=== PATIENT | female | born 1980 | race Caucasian/White ===

== ENCOUNTER 2018-12-09 08:15 | Emergency (ER) | payer SELFPAY ==
[2018-12-09] MEDS ORDERED: KETOROLAC TROMETHAMINE 60 MG/2 ML SDV IM ONE (09:58)
--- NOTE | 2018-12-09 10:00 | ER Document Report ---
ED General - General Chief Complaint: Back Pain Stated Complaint: BACK PAIN Time Seen by Provider: 12/09/18 08:47 TRAVEL OUTSIDE OF THE [place] IN LAST 30 DAYS: No - HPI Patient complains to provider of: backache Onset: Last week Onset/Duration: Sudden Quality of pain: Achy, Burning Severity: Severe Context: 38 year old female arrives with left sided low back pain that is sharp and radiates into left posterior thigh. Started 3 days ago acutely after picking up a book bag. Pain not relieved with otc meds. No bowel or bladder difficulty. No fever. Back pain occaisionally in the past. Associated symptoms: None Exacerbated by: Movement Relieved by: Denies - Related Data Allergies/Adverse Reactions: egg [Egg] Allergy (Intermediate, Verified 12/09/18 08:16) rash banana [Banana] Adverse Reaction (Severe, Verified 12/09/18 08:16) Anaphylaxis vitamin milk Allergy (Severe, Uncoded 12/09/18 08:16) rash mushrooms Allergy (Intermediate, Uncoded 12/09/18 08:16) halluncinations Past Medical History - Social History Smoking Status: Unknown if Ever Smoked Frequency of alcohol use: None Drug Abuse: None Family History: Reviewed & Not Pertinent Patient has suicidal ideation: No Patient has homicidal ideation: No - Past Medical History Cardiac Medical History: Denies: Hx Coronary Artery Disease, Hx Heart Attack, Hx Hypertension Pulmonary Medical History: Reports: Hx Asthma - no meds x 1 yr, Hx Bronchitis - hx of Denies: Hx COPD, Hx Pneumonia Neurological Medical History: Denies: Hx Cerebrovascular Accident, Hx Seizures Renal/ Medical History: Denies: Hx Peritoneal Dialysis Musculoskeletal Medical History: Denies Hx Arthritis, Reports Hx Fibromyalgia Psychiatric Medical History: Reports: Hx Attention Deficit Hyperactivity Disorder Past Surgical History: Reports: Hx Section - x2, Hx Cholecystectomy, Hx Tonsillectomy - adnoids - Immunizations Hx Diphtheria, Pertussis, Tetanus Vaccination: Yes Hx Pneumococcal Vaccination: 01/08/14 Review of Systems - Review of Systems Constitutional: No symptoms reported EENT: No symptoms reported Cardiovascular: No symptoms reported Respiratory: No symptoms reported Gastrointestinal: No symptoms reported Genitourinary: No symptoms reported Female Genitourinary: No symptoms reported Musculoskeletal: See HPI, Back pain Skin: No symptoms reported Hematologic/Lymphatic: No symptoms reported Neurological/Psychological: No symptoms reported Physical Exam - Vital signs Interpretation: Normal - General General appearance: Appears well, Alert - HEENT Head: Normocephalic, Atraumatic Eyes: Normal Pupils: PERRL - Respiratory Respiratory status: No respiratory distress Chest status: Nontender Breath sounds: Normal Chest palpation: Normal - Cardiovascular Rhythm: Regular Heart sounds: Normal auscultation Murmur: No - Abdominal Inspection: Normal Distension: No distension Bowel sounds: Normal Tenderness: Nontender Organomegaly: No organomegaly - Back Back: Tender. No: Vertebra tenderness - Extremities General upper extremity: Normal inspection, Nontender, Normal color, Normal ROM, Normal temperature General lower extremity: Normal inspection, Nontender, Normal color, Normal ROM, Normal temperature, Normal weight bearing. No: Herberth's sign - Neurological Neuro grossly intact: Yes Cognition: Normal Orientation: AAOx4 [place] Coma Scale Eye Opening: Spontaneous [place] Coma Scale Verbal: Oriented [place] Coma Scale Motor: Obeys Commands Carl[place] Coma Scale Total: 15 Speech: Normal Motor strength normal: LUE, RUE, LLE, RLE Sensory: Normal - Psychological Associated symptoms: Normal affect, Normal mood - Skin Skin Temperature: Warm Skin Moisture: Dry Skin Color: Normal Discharge - Discharge Clinical Impression: Sciatic leg pain Backache Qualifiers: Back pain location: low back pain Chronicity: acute Back pain laterality: left Sciatica presence: with sciatica Sciatica laterality: sciatica of left side Qualified Code(s): M54.42 - Lumbago with sciatica, left side Condition: Good Disposition: HOME, SELF-CARE Instructions: Low Back Pain ([facility]), Muscle Strain ([facility]), Oral Narcotic Medication ([facility]) Additional Instructions: Rest, ice to back. See your doctor in follow up. Please return here for any problems or any concerns. Take your medicine as directed. Prescriptions: Hydrocodone Bit/Acetaminophen [Hydrocodon-Acetaminophen 5-325] 1 each PO TID #12 tablet Ibuprofen [Motrin 600 Mg Tablet] 600 mg PO TID #15 tablet Diazepam [Valium] 5 mg PO TID #12 tablet
[2018-12-09 10:12] VITALS: BP 123/68
== END 2018-12-09 10:12 | disposition home or self-care (01) ==
LOC: ER 08:15
DX: M54.42 Lumbago with sciatica, left side (principal); Z90.49 Acquired absence of other specified parts of digestive tract; Z91.012 Allergy to eggs; Z91.018 Allergy to other foods
CPT/HCPCS: 99283; 96374; J1885